=== PATIENT | male | born 1965 | race Caucasian/White ===

== ENCOUNTER 2021-02-22 12:00 | Emergency (ER) | payer SELFPAY ==
[~2021-02-22] VITALS: Ht 182.9 cm; Wt 160.6 kg
[2021-02-22] MEDS ORDERED: SODIUM CHLORIDE 0.9% 100 ML 100 ML IV ONE (12:45)
[2021-02-22] MEDS ORDERED: CASIRIVIMAB/IMDEVIMAB 10 ML in SODIUM CHLORIDE 0.9% 100 ML IV ONE (12:45)
[2021-02-22 13:47] VITALS: BP 139/95
== END 2021-02-22 13:50 | disposition home or self-care (01) ==
LOC: ER 12:43
DX: U07.1 COVID-19 (principal); R05 Cough; I10 Essential (primary) hypertension; I48.91 Unspecified atrial fibrillation; M19.91 Primary osteoarthritis, unspecified site
CPT/HCPCS: 99283; J7050